=== PATIENT | female | born 1955 | race Hispanic/Latino ===

== ENCOUNTER 2018-07-14 06:47 | Day surgery (SDC) | payer BC ==
[2018-07-08 11:20] VITALS: BMI 28.1
[2018-07-14] MEDS ORDERED: Propofol 10 mg/ml Inj (20 ML) ONE (08:44)
[2018-07-14] MEDS ORDERED: Midazolam 2 MG/2 ML VIAL ONE (08:44)
[2018-07-14] MEDS ORDERED: Sodium Chloride 0.9% 1,000 ML IV SCH (08:45)
[2018-07-14] MEDS ORDERED: ePHEDrine 50 mg/ml Inj ONE (09:11)
[2018-07-14 10:14] VITALS: BP 97/52; PULSE 68; RESP 18; TEMP 97.2; O2SAT 100
== END 2018-07-14 10:39 | disposition home or self-care (01) ==
LOC: ENDO 06:47
PROVIDERS: ATTEND Specialist
DX: K63.5 Polyp of colon (principal); K64.8 Other hemorrhoids; K59.00 Constipation, unspecified
CPT/HCPCS: 45380; 88305; J2250; J2704; J7030; J7040